=== PATIENT | male | born 1985 | race Caucasian/White ===

== ENCOUNTER 2016-11-24 19:05 | Emergency (ER) | payer SELFPAY ==
[~2016-11-24] VITALS: Ht 182.9 cm; Wt 81.6 kg
--- OUTSIDE RECORDS SUMMARY | 2016-11-24 19:11 | XMS REPORT | Continuity of Care Document ---
Author Author Formerly [facility] Address Unknown Phone Unavailable Allergies Medications Problems Date Dx Coded Attending Type Code Diagnosis Diagnosed By 05/23/2010 SUSAN CHO APRNIA R V05.3 HEPATITIS A VACCINE 05/23/2010 LEE SHAW CHARITY A V05.3 HEPATITIS A VACCINE 05/23/2010 LEE CONSUMER ADVOCATE, CHARITY A V05.3 HEPATITIS A VACCINE 05/23/2010 NUVIA SHAW, JUDY R V05.3 HEPATITIS A VACCINE 05/23/2010 TWIN CORONADO DDS V05.3 HEPATITIS A VACCINE 05/23/2010 MARCIA LANDIS DO V05.3 HEPATITIS A VACCINE 02/07/2012 MARQUIS CONSUMER ADVOCATE, DENIA R 276.7 HYPERKALEMIA 02/07/2012 MARQUIS SHAW DENIA R 729.4 FASCIITIS 02/07/2012 MARQUIS SHAW, DENIA R 786.2 cough 02/07/2012 RAJBENJAMINE CONSUMER ADVOCATE, CHARITY A 276.7 HYPERKALEMIA 02/07/2012 RAJBENJAMINE CONSUMER ADVOCATE, CHARITY A 729.4 FASCIITIS 02/07/2012 RAJBENJAMINE CONSUMER ADVOCATE, CHARITY A 786.2 cough 02/07/2012 RAJOTTE CONSUMER ADVOCATE, CHARITY A 276.7 HYPERKALEMIA 02/07/2012 RAJOTTE CONSUMER ADVOCATE, CHARITY A 729.4 FASCIITIS 02/07/2012 RAJOTTE CONSUMER ADVOCATE, CHARITY A 786.2 cough 02/07/2012 NUVIA CONSUMER ADVOCATE, JUDY R 276.7 HYPERKALEMIA 02/07/2012 NUVIA CONSUMER ADVOCATE, JUDY R 729.4 FASCIITIS 02/07/2012 NUVIA CONSUMER ADVOCATE, JUDY R 786.2 cough 02/07/2012 WHITE DDS, TWIN J 276.7 HYPERKALEMIA 02/07/2012 WHITE DDS, TWIN J 729.4 FASCIITIS 02/07/2012 WHITE DDS, TWIN J 786.2 cough 02/07/2012 MARCIA LANDIS DO 276.7 HYPERKALEMIA 02/07/2012 MARCIA LANDIS DO 729.4 FASCIITIS 02/07/2012 MARCIA LANDIS DO 786.2 cough 05/02/2013 DENIA CHO APRN R 461.9 SINUSITIS ACUTE 05/02/2013 SARAHBENJAMINFrancisco CONSUMER ADVOCATE, CHARITY A 461.9 SINUSITIS ACUTE 05/02/2013 LEE SHAW CHARITY A 461.9 SINUSITIS ACUTE 05/02/2013 NUVIA SHAW JUDY R 461.9 SINUSITIS ACUTE 05/02/2013 WHITE DDS, TWIN J 461.9 SINUSITIS ACUTE 05/02/2013 MARCIA LANDIS DO 461.9 SINUSITIS ACUTE 05/19/2013 RAJPORFIRIO CONSUMER ADVOCATE, CHARITY A 780.79 fatigue 05/19/2013 LEE CONSUMER ADVOCATE, CHARITY A 784.0 HEADACHE 05/19/2013 NUVIA SHAW, JUDY R 780.79 fatigue 05/19/2013 NUVIA SHAW JUDY R 784.0 HEADACHE 05/19/2013 WHITE DDS, TWIN J 780.79 fatigue 05/19/2013 WHITE DDS, TWIN J 784.0 HEADACHE 05/19/2013 MARCIA LANDIS DO 780.79 fatigue 05/19/2013 MARCIA LANDIS DO 784.0 HEADACHE 06/20/2013 MARCIA LANDIS DO 473.8 OTHER CHRONIC SINUSITIS Procedures Code [place] [address] ROUTINE VENIPUNCTURE 05/19/2013 75780 MONO TEST (IN-HOUSE) 05/19/2013 39162 CBC 05/19/2013 9051130 GFR CALC (RESULT ONLY) 05/19/2013 69392 CMP 05/19/2013 64680 VIT B 12 2013 91588 FERRITIN 2013 EPSTBARR ANDRES-REGAN 05/19/[address] SINUS W/O CONTRAST 05/28/2013 OTOLARYNG SETH FOREMAN 06/20/2013 Results Encounters ACCT No. Visit Date/Time Discharge Status Pt. Type Provider Facility Loc./Unit Complaint [id number] 06/20/2013 11:27:00 06/20/2013 23: 59:59 CLS Outpatient MARCIA LANDIS DO [id number] 06/16/2013 09:01:00 06/16/2013 23: 59:59 CLS Outpatient CLIFF TWIN VIEIRA Priyanka [id number] 05/28/2013 08:54:00 05/28/2013 23: 59:59 CLS Outpatient JUDY PEDERSEN APRN [id number] 05/19/2013 09:24:00 05/19/2013 23: 59:59 CLS Outpatient CHARITY HOWARD APRN [id number] 05/09/2013 11:09:00 05/09/2013 23: 59:59 CLS Outpatient CHARITY HOWARD APRN [id number] 05/02/2013 12:05:00 05/02/2013 23: 59:59 CLS Outpatient DENIA CHO APRN
--- NOTE | 2016-11-24 19:41 | ED General ---
General Chief Complaint: General Problems/Pain Stated Complaint: LT HAND NUMBNESS,HIGH HEART RATE Nursing Triage Note: c/o numbness 4th and 5th fingers left hand with tightness and subjective swelling of tongue. Onset 15 min ago while at the movie theater. Heart palpitations reported. Nursing Sepsis Screen: No Definite Risk Source of Information: Patient, Family (father and sister) Exam Limitations: No Limitations History of Present Illness Time Seen by Provider: 19:29 Initial Comments Patient presents to ER by private conveyance today with his family members. He states that he was in the movie theater today and started expressing numbness and tingling in his left forearm on the fourth and fifth digits on the palmar side that extended almost appears elbow. He says he was working out yesterday for the first time in several weeks. He also was having some difficulty sleeping since he's recently traveled back from [place] his home country and had taken some alcohol one and a half glasses of wine yesterday as well as a hydrocodone about 5:00 this morning to try and get some sleep. He did finally get 5 hours sleep. He states he has no previous medical history. He is also expressing some numbness and tingling in his face especially the right jaw. He felt his pulse and said it was very rapid. He says he's had this situation once before about 6 or 7 years ago in [facility] and had a extensive workup and nothing was found. He also is complaining today of having some left groin discomfort that is made worse when he started having his symptoms in the movie theater. He is right-handed. He is not having any chest pain or shortness of breath or nausea. Other than the medications that he took for sleep he is not on any regular medicines and has no medical history. He did have his knee and ankle worked on for various orthopedic injuries. he denies tobacco or illicit drug use. Allergies and Home Medications Allergies Coded Allergies: No Known Allergies (Verified Allergy, Unknown, 07/21/08) Constitutional: No chills, No diaphoresis, No fever, No malaise EENTM: No blurred vision, No double vision, No ear pain, No eye pain Respiratory: No cough, No dyspnea on exertion, No short of breath Cardiovascular: No chest pain, No edema, No Hx of Intervention, No palpitations , No syncope, No vascular heart diseas Gastrointestinal: No abdominal pain, No constipation, No diarrhea, No nausea, No vomiting Genitourinary: No dysuria, No frequency Musculoskeletal: No back pain, No joint pain Skin: No pruritus, No rash Psychiatric/Neurological: See HPI, Denies Anxiety, Denies Depressed, Other ( insomnia) Hematologic/Lymphatic: Denies Anemia, Denies Easy Bleeding Past Vszfujr-Gyeizv-Xbkihz Hx Patient Social History Alcohol Use: Occasionally Uses (last drink was one and a half cups of wine yesterday night.) Recreational Drug Use: No Smoking Status: Never a Smoker Recent Foreign Travel: No Contact w/Someone Who Travel: No Recent Infectious Disease Expo: No Respiratory Hx Respiratory Disorders: No Cardiovascular Hx Cardiac Disorders: No Neurological Hx Neurological Disorders: No Reproductive System Hx Reproductive Disorders: No Genitourinary Hx Genitourinary Disorders: No Gastrointestinal Hx Gastrointestinal Disorders: No Musculoskeletal Hx Musculoskeletal Disorders: No Endocrine Hx Endocrine Disorders: No HEENT HX ENT Disorders: No Blood Transfusions Hx Blood Disorders: No Physical Exam Vital Signs Vital Sign - Last 12Hours 11/24/16 19:30 Temp 97.5 Pulse 82 Resp 16 B/P (MAP) 152/82 O2 Delivery Room Air Capillary Refill : Less Than 3 Seconds General Appearance: No Apparent Distress, WD/WN Eyes: Bilateral Eye EOMI, Bilateral Eye Normal Inspection, Bilateral Eye PERRL HEENT: PERRL/EOMI, Pharynx Normal Neck: Full Range of Motion, Normal Inspection, Non Tender, Supple Respiratory: Chest Non Tender, Lungs Clear, Normal Breath Sounds, No Accessory Muscle Use Cardiovascular: Regular Rate, Rhythm, No Edema, No Murmur, Normal Peripheral Pulses Gastrointestinal: Normal Bowel Sounds, Non Tender, Soft Extremity: Normal Capillary Refill, No Pedal Edema Neurologic/Psychiatric: Alert, Oriented x3, No Motor/Sensory Deficits, Normal Mood/Affect, facility maintenance mechanic II-XII Norm as Tested, Other (no paresthesias on percussion over the ulnar canal of the elbow. Sensation to light touch intact 4 extremities.) Skin: Normal Color, Warm/Dry Lymphatic: No Adenopathy Progress/Results/Core Measures Results/Orders Lab Results Laboratory Tests Test 11/24/16 19:50 11/24/16 19:52 Range/Units White Blood Count 4.8 4.3-11.0 10^3/uL Red Blood Count 4.71 4.35-5.85 10^6/uL Hemoglobin 14.6 13.3-17.7 G/DL Hematocrit 45 40-54 % Mean Corpuscular Volume 95 80-99 FL Mean Corpuscular Hemoglobin 31 25-34 PG Mean Corpuscular Hemoglobin Concent 33 32-36 G/DL Red Cell Distribution Width 12.8 10.0-14.5 % Platelet Count 191 130-400 10^3/uL Mean Platelet Volume 9.2 7.4-10.4 FL Neutrophils (%) (Auto) 53 42-75 % Lymphocytes (%) (Auto) 35 12-44 % Monocytes (%) (Auto) 8 0-12 % Eosinophils (%) (Auto) 3 0-10 % Basophils (%) (Auto) 1 0-10 % Neutrophils # (Auto) 2.5 1.8-7.8 X 10^3 Lymphocytes # (Auto) 1.7 1.0-4.0 X 10^3 Monocytes # (Auto) 0.4 0.0-1.0 X 10^3 Eosinophils # (Auto) 0.1 0.0-0.3 10^3/uL Basophils # (Auto) 0.0 0.0-0.1 10^3/uL Sodium Level 139 135-145 MMOL/L Potassium Level 3.8 3.6-5.0 MMOL/L Chloride Level 102 98-107 MMOL/L Carbon Dioxide Level 26 21-32 MMOL/L Anion Gap 11 5-14 MMOL/L Blood Urea Nitrogen 7 7-18 MG/DL Creatinine 0.80 0.60-1.30 MG/DL Estimat Glomerular Filtration Rate > 60 BUN/Creatinine Ratio 9 Glucose Level 107 H 70-105 MG/DL Calcium Level 8.9 8.5-10.1 MG/DL Phosphorus Level 3.1 2.3-4.7 MG/DL Magnesium Level 1.9 1.8-2.4 MG/DL Total Bilirubin 0.4 0.1-1.0 MG/DL Aspartate Amino Transf (AST/SGOT) 20 5-34 U/L Alanine Aminotransferase (ALT/SGPT) 20 0-55 U/L Alkaline Phosphatase 79 40-136 U/L Troponin I < 0.30 <0.30 NG/ML C-Reactive Protein High Sensitivity 0.01 0.00-0.50 MG/DL Total Protein 6.8 6.4-8.2 GM/DL Albumin 4.3 3.2-4.5 GM/DL Thyroid Stimulating Hormone (TSH) 1.35 0.35-4.94 UIU/ML Urine Color YELLOW Urine Clarity CLEAR Urine pH 7 5-9 Urine Specific [place] 1.010 L 1.016-1.022 Urine Protein NEGATIVE NEGATIVE Urine Glucose (UA) NEGATIVE NEGATIVE Urine Ketones NEGATIVE NEGATIVE Urine Nitrite NEGATIVE NEGATIVE Urine Bilirubin NEGATIVE NEGATIVE Urine Urobilinogen NORMAL NORMAL MG/DL Urine Leukocyte Esterase NEGATIVE NEGATIVE Urine RBC (Auto) NEGATIVE NEGATIVE Urine RBC NONE /HPF Urine WBC NONE /HPF Urine Squamous Epithelial Cells RARE /HPF Urine Crystals NONE /LPF Urine Bacteria NONE /HPF Urine Casts NONE /LPF Urine Mucus NEGATIVE /LPF Urine Culture Indicated NO My Orders Orders - ELADIO MONGE Cbc With Automated Diff (11/24/16 19:41) Comprehensive Metabolic Panel (11/24/16 19:41) Hs C Reactive Protein (11/24/16 19:41) Magnesium (11/24/16 19:41) Thyroid Stimulating Hormone (11/24/16 19:41) Troponin I (11/24/16 19:41) Ua Culture If Indicated (11/24/16 19:41) Phosphorus (11/24/16 19:41) Chest 1 View, Ap/Pa Only (11/24/16 19:41) Vital Signs/I&O Vital Sign - Last 12Hours 11/24/16 19:30 Temp 97.5 Pulse 82 Resp 16 B/P (MAP) 152/82 O2 Delivery Room Air Blood Pressure Mean: 105 Progress Note : Time: 20:51 Progress Note Given his family history and personal history is unlikely the patient will have any kind of cardiac syndrome at this age. However with his workup completed anxiety with panic attack versus compressive neuropathy would be more likely. We 'll give him some instructions to follow-up with his PCP and get his B12 and folate checked given his history of eating lifestyle. We'll also treat him with NSAIDs for at least 2 weeks and apply ice to the elbow every time he gets numbness in his hand. ECG Initial ECG Impression Date: Nov 24, 2016 Initial ECG Impression Time: 19:20 Initial ECG Rate: 68 Initial ECG Rhythm: Normal Sinus Initial ECG Intervals: Normal Initial ECG Impression: Normal Initial ECG Comparisson: Unchanged Comment No ST elevation or depression. Diagnostic Imaging Diagonstic Imaging: Xray Plain Films/CT/US/NM/MRI: chest (1v) Comments No acute cardiopulmonary processes noted. NAME: MESERET SALMERON [facility] REC#: [id number] PHYSICIAN: ELADIO MONGE MD CC: ANNY LUND; ELADIO MONGE Page 1 of 1 RADIOLOGY REPORT VIA [facility], [facility]. [place], [place] CC: ANNY LUND; ELADIO MONGE Page 1 of 1 RADIOLOGY REPORT NAME: MESERET SALMERON [facility] REC#: [id number] PT STATUS: REG ER : 1985 PHYSICIAN: ELADIO MONGE MD ADMIT DATE: 11/24/16/ER Signed Date of Exam: 11/24/16 CHEST 1 VIEW, AP/PA ONLY INDICATION: Left arm numbness, tongue swelling and heart palpitations. No prior examinations are available for comparison. FINDINGS: The heart size, mediastinal configuration, and pulmonary vascularity are within normal limits. There is no pleural effusion, pneumothorax, or pneumonia. The osseous structures are unremarkable. IMPRESSION: No acute cardiopulmonary abnormality. Dictated by: Dictated on workstation # [id number] Dict: 11/24/162001 Trans: 11/24/162018 Interpreted by: ANNY LUND Electronically signed by: ANNY LUND 11/24/162018 Reviewed: Reviewed by Me Departure Impression Impression: Primary Impression: Arm paresthesia, left Additional Impression: Right facial numbness Disposition: 01 HOME, SELF-CARE Condition: Stable Departure-Patient Inst. Decision time for Depature: 20:55 Patient Instructions: Hand Numbness Add. Discharge Instructions: Take an NSAID such as Naprosyn 2 tablets twice a day by mouth or ibuprofen 4 tablets 3 times a day by mouth every day for the next 2 weeks. Every time you have numbness or pins and needle sensation in your hand and apply ice directly to the inside of your elbow. If you continue to have these symptoms you should follow-up with your primary care physician and get your vitamin B12 and folate checked. If you have new or worrisome symptoms such as falls or weakness or you are actually dropping things you can return to the ER or go to your primary care physician for workup. It is also encouraged you change your physician if you started having numbness and see if this helps the numbness go away. All discharge instructions reviewed with patient and/or family. Voiced understanding. ELADIO MONGE Nov 24, 2016 19:41
[2016-11-24 19:59] LABS: BILIRUBIN,URINE NEGATIVE (NEGATIVE); KETONES,URINE NEGATIVE (NEGATIVE); LEUKOCYTE ESTERASE ,URINE NEGATIVE (NEGATIVE); NITRITE,URINE NEGATIVE (NEGATIVE); PH,URINE 7 (5-9); PROTEIN,URINE NEGATIVE (NEGATIVE); UROBILINOGEN,URINE NORMAL (NORMAL)
[2016-11-24 19:59] LABS: BASOPHILS % (AUTO) 1 % (0-10); EOSINOPHILS # (AUTO) 0.1 10^3/uL (0.0-0.3); EOSINOPHILS % (AUTO) 3 % (0-10); LYMPHOCYTES # (AUTO) 1.7 X 10^3 (1.0-4.0); LYMPHOCYTES % (AUTO) 35 % (12-44); MEAN CORPUSCULAR HEMOGLOBIN 31 PG (25-34); MEAN CORPUSCULAR HGB CONC 33 G/DL (32-36); MEAN CORPUSCULAR VOLUME 95 FL (80-99); MEAN PLATELET VOLUME 9.2 FL (7.4-10.4); MONOCYTES # (AUTO) 0.4 X 10^3 (0.0-1.0); MONOCYTES % (AUTO) 8 % (0-12); NEUTROPHILS # (AUTO) 2.5 X 10^3 (1.8-7.8); NEUTROPHILS % (AUTO) 53 % (42-75); PLATELET COUNT 191 10^3/uL (130-400); RED BLOOD COUNT 4.71 10^6/uL (4.35-5.85); RED CELL DISTRIBUTION WIDTH 12.8 % (10.0-14.5); WHITE BLOOD COUNT 4.8 10^3/uL (4.3-11.0)
--- NOTE | 2016-11-24 20:04 | Diagnostic Imaging Report ---
INDICATION: Left arm numbness, tongue swelling and heart palpitations. No prior examinations are available for comparison. FINDINGS: The heart size, mediastinal configuration, and pulmonary vascularity are within normal limits. There is no pleural effusion, pneumothorax, or pneumonia. The osseous structures are unremarkable. IMPRESSION: No acute cardiopulmonary abnormality. Dictated by: Dictated on workstation # [id number]
[2016-11-24 20:07] LABS: SQUAMOUS EPITHELIAL CELL,UR RARE /HPF
[2016-11-24 20:20] LABS: ALANINE AMINOTRANSFERASE 20 U/L (0-55); ALBUMIN 4.3 GM/DL (3.2-4.5); ANION GAP 11 MMOL/L (5-14); ASPARTATE AMINO TRANSFERASE 20 U/L (5-34); BILIRUBIN,TOTAL 0.4 MG/DL (0.1-1.0); BLOOD UREA NITROGEN 7 MG/DL (7-18); BUN/CREATININE RATIO 9; CALCIUM 8.9 MG/DL (8.5-10.1); CARBON DIOXIDE 26 MMOL/L (21-32); CHLORIDE 102 MMOL/L (98-107); GFR ESTIMATED > 60; GLUCOSE 107 MG/DL (70-105); MAGNESIUM 1.9 MG/DL (1.8-2.4); PHOSPHORUS 3.1 MG/DL (2.3-4.7); POTASSIUM 3.8 MMOL/L (3.6-5.0); SODIUM 139 MMOL/L (135-145); TOTAL PROTEIN 6.8 GM/DL (6.4-8.2); hs C REACTIVE PROTEIN 0.01 MG/DL (0.00-0.50)
[2016-11-24 20:40] LABS: THYROID STIMULATING HORMONE 1.35 UIU/ML (0.35-4.94); TROPONIN I < 0.30 NG/ML (<0.30)
[2016-11-24 20:59] VITALS: BP 132/82
== END 2016-11-24 21:04 | disposition home or self-care (01) ==
LOC: EDUNIT# 19:05 → ER 19:08
DX: R20.2 Paresthesia of skin (principal); R20.0 Anesthesia of skin
CPT/HCPCS: 36415; 71010; 80053; 81000; 83735; 84100; 84443; 84484; 85025; 86141; 99283